=== PATIENT | female | born 1990 | race Caucasian/White ===

== ENCOUNTER 2020-11-04 17:35 | Emergency (ER) | payer OTHER ==
--- NOTE | 2020-11-04 17:38 | NUR ---
PATIENT LEFT WITHOUT BEING SEEN BY DR. ALEGRIA. NO FURTHER CARE PROVIDED FOR PATIENT.
== END 2020-11-04 17:38 | disposition left against medical advice (07) ==
LOC: MED 17:35
DX: O26.891 Other specified pregnancy related conditions, first trimester (principal); Z53.21 Procedure and treatment not carried out due to patient leaving prior to being seen by health care provider